=== PATIENT | female | born 1970 | race Caucasian/White ===

== ENCOUNTER 2022-07-22 23:34 | Emergency (ER) | payer BC ==
[2022-07-22 23:56] VITALS: BP 115/81; PULSE 84; RESP 14; TEMP 97.3; BMI 26.5
== END 2022-07-23 04:03 | disposition home or self-care (01) ==
LOC: FER 23:34
DX: R41.0 Disorientation, unspecified (principal); F10.10 Alcohol abuse, uncomplicated
CPT/HCPCS: 70450-TC; 99284-25

== ENCOUNTER 2022-09-11 15:20 | Emergency (ER) | payer BC ==
[2022-09-11] MEDS ORDERED: ALBUTEROL SO4 2.5/IPRATROPIUM 0.5 INH SOL 3 ML VIAL.NEB. NEB ONE ×3 (16:16→16:46)
[2022-09-11] MEDS ORDERED: predniSONE 20 MG TABLET (UD) PO ONE (16:17)
[2022-09-11] MEDS ORDERED: predniSONE 20 MG TABLET (UD) ONE (16:46)
[2022-09-11 16:59] VITALS: BP 128/79; PULSE 104; RESP 18; TEMP 98.1; BMI 23.1
== END 2022-09-11 18:31 | disposition home or self-care (01) ==
LOC: FER 15:20
PROC: 3E0F7GC Introduction of Other Therapeutic Substance into Respiratory Tract, Via Natural or Artificial Opening (ICD-10-PCS; principal; 2022-09-11)
DX: J45.901 Unspecified asthma with (acute) exacerbation (principal); R05.9 Cough, unspecified; J98.6 Disorders of diaphragm; R06.00 Dyspnea, unspecified; Z87.891 Personal history of nicotine dependence
CPT/HCPCS: 71046-TC-FY; 99283-25

== ENCOUNTER 2024-01-14 20:24 | Emergency (ER) | payer BC, OTHER ==
[2024-01-14 20:41] VITALS: BP 143/97; PULSE 97; RESP 16; TEMP 97.3; BMI 30.9
[2024-01-14] MEDS ORDERED: FLUORESCEIN NA 1 EA STRIP ONE (20:49)
[2024-01-14] MEDS ORDERED: TETRACAINE 0.5% OPHTH SOLN 2 ML BOTTLE ONE (20:49)
[2024-01-14] MEDS ORDERED: CIPROFLOXACIN 0.3% EYE DROPS 5 ML BOTTLE ONE (21:02)
== END 2024-01-14 21:12 | disposition home or self-care (01) ==
LOC: FER 20:24
DX: S05.01XA Injury of conjunctiva and corneal abrasion without foreign body, right eye, initial encounter (principal); H57.11 Ocular pain, right eye; X58.XXXA Exposure to other specified factors, initial encounter
CPT/HCPCS: 99282-25